=== PATIENT | male | born 1960 | race Caucasian/White ===

== ENCOUNTER → 2018-10-14 | Outpatient (REF) ==
--- NOTE | 2018-10-15 02:57 | REP ---
Clinical: Back pain . Technique: AP, lateral, and open-mouth views. Findings: Moderate multilevel degenerative disc osteophyte complexes are appreciated. Very subtle 2 mm grade 1 anterolisthesis at C3-4 cannot be excluded. Degenerative findings include endplate sclerosis, disc space narrowing, and marginal osteophytes. No acute fracture / compression injury. Impression: Moderate multilevel degenerative spondylosis. Electronically Signed by Dominick Justice MD 10/15/2018 02:49 A
--- NOTE | 2018-10-15 03:09 | REP ---
Clinical: Pain and disability. Technique: AP, lateral, coned-down views of the lumbosacral spine. Findings: Alignment and lordosis maintained. No acute fracture / compression injury or subluxation. Advanced degenerative disc osteophyte complex at L4-5 and L5-L1 includes endplate sclerosis, hypertrophic facet changes, marginal spurring, and disc space narrowing. Remainder examination appears relatively normal for age. Atherosclerotic changes to the aorta noted. Impression: Focal advanced degenerative spondylosis at L4-5 and L5-S1. Electronically Signed by Dominick Justice MD 10/15/2018 03:01 A
== END ==
LOC: M SMT 14:17
PROVIDERS: ATTEND Internal Medicine
DX: M50.31 Other cervical disc degeneration, high cervical region (principal); M51.36 Other intervertebral disc degeneration, lumbar region; M47.896 Other spondylosis, lumbar region; M47.897 Other spondylosis, lumbosacral region